=== PATIENT | male | born 1955 | race Caucasian/White ===

== ENCOUNTER 2019-05-29 10:51 | Observation (INO) ==
[2019-05-29] MEDS ORDERED: SODIUM CHLORIDE 0.9% 1000ML 2,000 ML IV SCH (11:30)
[2019-05-29 11:35] LABS: INR 1.2 (0.9-1.1); Prothrombin Time 12.3 Seconds (9.0-12.0)
--- NOTE | 2019-05-29 11:37 | XRay Report ---
XR chest 1V portable CLINICAL HISTORY: 63 years-old Male presenting with seizure. TECHNIQUE: Portable upright AP view of the chest was obtained. COMPARISON: None. FINDINGS: Cardiac silhouette top normal in size. No focal opacity. No large effusion or pneumothorax. Degenerat norma changes of the thoracic spine. Upper abdomen normal. IMPRESSION: 1. No acute cardiopulmonary disease. Electronically signed by: Mckinley Juarez M.D. 05/29/2019 11:36 AM
[2019-05-29 11:40] LABS: Alanine Aminotransferase 244 U/L (12-78); Albumin Level 3.5 gm/dl (3.4-5.0); Aspartate Aminotransferase 196 U/L (15-37); BUN Creatinine Ratio 15.4 (10-20); Blood Urea Nitrogen 16 mg/dl (7-18); Carbon Dioxide 23 mmol/L (21-32); Chloride 109 mmol/L (98-107); Creatinine Clr Calc Pharmacy 92.3 ml/min; Est GFR (African American) 88.4; Est GFR (Non-African American) 76.2; Glucose 104 mg/dl (70-99); Sodium 139 mmol/L (136-145)
[2019-05-29 11:44] LABS: Albumin Globulin Ratio 0.7 (0.9-2); Alkaline Phosphatase 101 U/L (45-117); Bilirubin,Total 1.3 mg/dl (0.2-1); Globulin 4.7 gm/dl (2.5-4.0); Total Protein 8.2 gm/dl (6.4-8.2); Troponin I < 0.015 ng/ml (0-0.045)
--- NOTE | 2019-05-29 11:45 | CT Scan Report ---
CT OF THE HEAD WITHOUT CONTRAST CLINICAL HISTORY: Seizure. COMPARISON STUDY: No previous studies for comparison. CT DOSE: 614.27 mGy.cm TECHNIQUE: Helical axial images of the head were obtained without IV contrast. Automated exposure con trol was utilized for the study. A dose lowering technique was utilized adhering to the principles o f ALARA. FINDINGS: No acute intracranial hemorrhage, midline shift or mass effect is present. The ventricular system is unremarkable. The basilar cisterns are patent. No extra-axial collections are present. Ther e are no findings to suggest acute dural sinus thrombosis or acute territorial infarct. A 6 mm hypode nsity within left cerebellar hemisphere suggests an old lacunar infarct. No significant calvarial abn ormalities are present. Visualized portions of the sinuses and mastoid air cells are clear. IMPRESSION: 1. No acute intracranial findings. 2. Suspected old lacunar infarct within the left cerebellar hemisphere. Electronically signed by: Joshua Haider M.D. 05/29/2019 11:44 AM
[2019-05-29 11:56] LABS: Basophils # (auto) 0.02 K/uL (0-0.2); Basophils % (auto) 0.5 %; Eosinophils # (auto) 0.07 K/uL (0-0.5); Eosinophils % (auto) 1.6 %; Hematocrit (blood only) 42.8 % (42-52); Hemoglobin 15.3 g/dL (14.0-18.0); Immature Granulocytes # (auto) 0.01 K/uL (0.00-0.02); Immature Granulocytes % (auto) 0.2 %; Lymphocytes # (auto) 0.58 K/uL (1.2-3.4); Lymphocytes % (auto) 13.1 %; Mean Corpuscular Hgb Conc 35.7 g/dL (32-36); Mean Corpuscular Volume 98.8 fL (80-100); Monocytes # (auto) 0.54 K/uL (0.11-0.59); Monocytes % (auto) 12.2 %; Neutrophils % (auto) 72.4 %; Platelet Count 87 K/uL (130-400); RDW Coefficient of Variation 14.7 % (11.5-14.5); RDW Standard Deviation 53.2 fL (36.4-46.3); Red Blood Count 4.33 M/uL (4.7-6.1); White Blood Count 4.42 K/uL (4.8-10.8)
[2019-05-29] MEDS ORDERED: FOLIC ACID 1 MG in SYRINGE 9.8 ML IV STA (14:03)
[2019-05-29] MEDS ORDERED: THIAMINE HCL 100 MG in SYRINGE 9 ML IV STA (14:03)
--- NOTE | 2019-05-29 14:03 | Ultrasound Report ---
ULTRASOUND RIGHT UPPER QUADRANT ABDOMEN CLINICAL HISTORY: Elevated hepatic transaminases and bilirubin. COMPARISON STUDY: No priors. TECHNIQUE: Real-time, grayscale, and color flow sonography of the right upper quadrant of the abdomen was performed. Images are reviewed in the transverse and longitudinal planes. FINDINGS: Liver: The liver is normal in size and echotexture. There is no intrahepatic biliary ductal dilatatio n. The main portal vein is patent. Gallbladder: There are numerous shadowing calcified gallstones which measure up to 1.7 cm. There is n o significant gallbladder wall thickening or pericholecystic fluid. A sonographic Molina's sign is re portedly absent. The common bile duct measures up to 0.5 cm in diameter. Pancreas: Not well visualized due to overlying bowel gas. Right kidney: Survey images of the right kidney demonstrate normal size and echotexture. There is no hydronephrosis. Ascites: None. IMPRESSION: Cholelithiasis without definitive sonographic evidence of acute cholecystitis. If there i s strong clinical concern for acute cholecystitis a nuclear hepatobiliary scan could be considered. Electronically signed by: Joselito Mayfield M.D. 05/29/2019 2:01 PM
[2019-05-29] MEDS: MULTIVITAMIN TAB PO SCH (14:30)
--- NOTE | 2019-05-29 16:06 | History & Physical Report ---
Date of Service May 29, 2019 Assessment & Plan (1) Syncopal seizure: Patient is a 63-year-old male with a past medical history of jaundice, cholelithiasis, and intermittent gallbladder related abdominal pain. Patient is presenting for evaluation of syncopal episode with questionable seizure. #Syncopal seizure Patient reports he has no seizure history, no family history of seizures, strokes and no other concerning risk factors for seizure. Patient attributes his current symptoms and presentation to lack of proper nutrition and dehydration. Patient CT scan did show a prior small lacunar cerebellar infarct, the patient was not previously aware of this, and has no residual symptoms. Patient does not follow regularly with PCP, and his medical history is largely unknown. We will proceed with seizure work-up. -admitted to tele, seizure precautions -eeg -hba1c -bsg achs -f/u ck -f/u lactate #Abnormal EKG Patient reports having no significant cardiac history, denies any chest pain, chest pressure, funny heartbeats, fast heartbeats, slow heartbeat or anything else out of the normal. On admission patient's EKG demonstrated ventricular rate of 88 bpm, QTC of 481, some axis deviation. There was a P wave before every QRS, the QRS complex is a bit widened no T wave inversions. Computer is is is age undetermined septal infarct otherwise normal sinus rhythm. Given the patient's presentation, and cyanosis during the syncopal events there was concern for potential intermittent arrhythmia. Findings on CT scan of previous cerebellar infarct there is a concern for intermittent atrial fibrillation with associated clot shedding -Consult cardiology appreciate recs -F/U Serial trops -Started on baby aspirin daily -f/u Echo -Daily twelve-lead EKG -F/U EEG -F/u Lipid Profile #Hx stroke CT findings of brain demonstrate history of cerebellar lacunar stroke. Patient has no symptoms of this, was not aware that he previously had a stroke. Concerning for potential intermittent paroxysmal A. fib with associated clot shedding -Carotid Dopplers -f/u echo #Dehydration Patient certainly does have a number of reasons to be dehydrated. The most likely cause of this would be alcohol intoxication without adequate fluid rehydration and poor nutrition. However it is possible given his lack of adequate medical follow-up that this could be related to an underlying metabolic condition. -trend daily cmp, mag, phos -trend daily cbc -f/u a1c #Transaminitis Per the patient this is chronic in nature. He was evaluated approximately 1.5 years ago by Melanie in [facility]. I spoke with her office on the phone, confirming these findings. Patient presented to them with jaundice, CMP demonstrated elevated LFTs, and she referred him to GI. Admission gallbladder ultrasound demonstrated cholelithiasis without acute cholecystitis. Likely secondary to recent alcohol use -Per ultrasound and physical exam, no concern for acute cholecystitis, cholelithiasis evident on ultrasound -Monitor for signs and symptoms of development of cholecystitis #Hypertension Patient has been hypertensive 170s over 90s since admission with a corresponding bradycardia of 56 bpm. We will hold off on antihypertensives pending cardiology consultation. -Unclear etiology, will hold off on therapy until cardiology consultation -Patient will likely need some form of chronic therapy. History of Present Illness Primary Care Provider: NO PCP Patient is a 63-year-old male with a past medical history of jaundice, cholelithiasis, and intermittent gallbladder related abdominal pain. Patient is presenting for evaluation of syncopal episode with questionable seizure. Patient was in his normal state of health this morning prior to the syncopal episode. Patient reports of the last time he ate a meal was yesterday during lunch. He is but drove up to Yesterday evening, on the way up to camp he stopped for a Coca-Cola. Upon arrival to The patient decided he wanted a night and made for "strong" rum and Cokes and went to sleep. He woke up this morning feeling slightly hung over but otherwise had no symptoms or complaints. He reports that he did not drink any significant water yesterday evening or this morning. Today they were walking around the [place] sale near [facility] when the patient began feeling dizzy and like he was going to pass out. Subsequently the patient had a syncopal episode, with associated full body tremors, tongue biting, he turned slightly blue, this lasted for approximately 2 minutes. Fortunately for the patient at this time there was a hospice nurse in a couple of marketing professor present. They took charge of the situation provided the patient with cool water, and ice packs. The patient recovered from a couple episode and was postictal, confused, unable to answer questions. He did have another questionable syncopal episode subsequently, this 1 was much shorter, and did not have significant shaking associated with it. EMS was called, per the patient's views for approximately 30 minutes until EMS arrived. The patient states he does not remember anything from the time of the fall until waking up in the ambulance. Upon waking up in the ambulance he reports being able to respond to questions and feeling significantly better. The patient was transferred to [facility] and evaluated department. The patient's lab findings were largely unremarkable with the exception of elevated liver function tests which per the patient was secondary to a history of cholelithiasis and need for elective cholecystectomy. Patient had a CT demonstrating an old cerebellar infarct. Patient is also slightly abnormal and concerning for possible previous infarct. Patient had a gallbladder ultrasound cholelithiasis without acute cholecystitis no current need for surgical intervention, chest x-ray was negative for any significant pathology. In the emergency department the patient was given 1 multivitamin, 1 folic, 1 dose of Keppra, a liter of saline, and thiamine. Patient denies any family history of seizures, history of cardiac disease. patient denies chest pain, chest pressure, shortness of breath, or other signs concerning for acute coronary, abdominal pain, change in vision, change in hearing, motor function, other concerning neurological signs or symptoms. Patient does drink heavily approximately 4 days/week, denies any recent changes in his alcohol consumption, this is most likely not related to alcohol withdrawal. Patient does not follow with her primary care provider regularly, approximately 1 & 1/2 years ago he saw Carmen Martin in [facility] for evaluation of jaundice, abdominal pain, he received ultrasound and was subsequently diagnosed with cholelithiasis and referred to gastroenterology for further evaluation. Patient is being admitted for observation to [facility] out of concern that this patient syncope was related to a cardiac event such as an arrhythmia. Allergies Allergy/AdvReac Type Severity Reaction Status Date / Time No Known Allergies Allergy Unverified 05/29/19 11:20 Home Medications Home Medications Medication Instructions Recorded Confirmed Type aspirin [Ecotrin Low Strength] 81 mg PO QAM #30 tab 05/30/19 Rx atorvastatin 80 mg PO DAILY #30 tab 05/30/19 Rx folic acid 1 mg PO QAM #30 tab 05/30/19 Rx lisinopril 10 mg PO QAM #30 tab 05/30/19 Rx thiamine HCl (vitamin B1) [Vitamin 100 mg PO QAM #30 tab 07/20/19 Rx B-1] Past Med/Surg History Medical History Seizure History of gallbladder disease No pertinent family history Surgical History No pertinent past surgical history Family History Other No pertinent family history Social History Preferred Language: Niuean Communication Ability: Effective Visual Impairment: No Limitations Hearing Ability: Normal Status Controller Required: No Beliefs That Will Affect Care: None Current Living Situation: Spouse Feels Safe at Home: No Is there a partner from a previous relationship who is making you feel unsafe now?: No Any Concerns about Your Family Situation: No Would You Like to Speak to Someone About Your Situation: No Safety Concerns: Feels Safe At This Time Smoking Status: Never smoker Do You Dip or Chew Tobacco: No Second Hand Exposure: No Tobacco Cessation Education Requested by Patient: No Hx Alcohol Use: Yes Alcohol type: beer Hx Substance Use: No Review of Systems Review of Systems: All systems reviewed & are unremarkable except as noted in HPI & below Physical Exam Physical Exam: General: Middle-aged male in no acute distress HEENT: Normocephalic atraumatic, tongue has a laceration and bruised secondary to biting Neck: Normal to visual inspection, negative JVD Cardiac: Regular rate and rhythm, I did not appreciate any murmurs rubs or gallops, normal S1 normal S2, negative pedal edema, negative calf tenderness Respiratory: Clear to auscultation bilaterally GI: Soft nontender nondistended normal bowel sounds MSK: Moves all extremities Skin: No new rashes Neuro: CN II through XII intact, no focal findings, sensory intact, motor intact, PERRLA, EOMI Psych: Calm, cooperative, not particularly interested in his health status, Results & Data Vital Signs (Past 12 Hours) Vital Signs Temp Pulse Resp BP Pulse Ox 05/29/19 14:30 66 20 161/88 H 97 05/29/19 14:18 59 L 17 160/87 H 98 05/29/19 14:00 73 22 194/104 H 97 05/29/19 13:57 63 22 174/100 H 98 05/29/19 12:30 70 23 171/102 H 97 05/29/19 12:00 77 22 171/94 H 94 05/29/19 11:42 81 18 160/82 H 95 05/29/19 11:04 37.2 C 94 H 18 173/90 H 96 Laboratory Results 05/29/19 05/29/19 05/29/19 Range/Units 11:00 11:00 11:00 WBC (4.8-10.8) K/uL RBC (4.7-6.1) M/uL Hgb (14.0-18.0) g/dL Hct (42-52) % MCV (80-100) fL MCH (25-34) pg MCHC (32-36) g/dL RDW Std Deviation (36.4-46.3) fL RDW Coeff of Yani (11.5-14.5) % Plt Count (130-400) K/uL MPV (7.4-10.4) fL Immature Gran % (Auto) % Neut % (Auto) % Lymph % (Auto) % Harrison % (Auto) % Eos % (Auto) % Baso % (Auto) % Immature Gran # (Auto) (0.00-0.02) K/uL Neut # (Auto) (1.4-6.5) K/uL Lymph # (Auto) (1.2-3.4) K/uL Harrison # (Auto) (0.11-0.59) K/uL Eos # (Auto) (0-0.5) K/uL Baso # (Auto) (0-0.2) K/uL PT (9.0-12.0) Seconds INR (0.9-1.1) Sodium 139 (136-145) mmol/L Potassium 4.0 (3.5-5.1) mmol/L Chloride 109 H (98-107) mmol/L Carbon Dioxide 23 (21-32) mmol/L Anion Gap 8.0 (3-11) BUN 16 (7-18) mg/dl Creatinine 1.05 (0.6-1.4) mg/dl Est Cr Clr Drug Dosing 92.3 ml/min Est GFR ( Amer) 88.4 Est GFR (Non-Af Amer) 76.2 BUN/Creatinine Ratio 15.4 (10-20) Glucose 104 H (70-99) mg/dl Calcium 9.0 (8.5-10.1) mg/dl Total Bilirubin 1.3 H (0.2-1) mg/dl AST 196 H (15-37) U/L ALT 244 H (12-78) U/L Alkaline Phosphatase 101 (45-117) U/L Total Creatine Kinase Pending Troponin I < 0.015 (0-0.045) ng/ml Total Protein 8.2 (6.4-8.2) gm/dl Albumin 3.5 (3.4-5.0) gm/dl Globulin 4.7 H (2.5-4.0) gm/dl Albumin/Globulin Ratio 0.7 L (0.9-2) Lipase 151 (73-393) U/L 05/29/19 05/29/19 Range/Units 11:00 11:00 WBC 4.42 L (4.8-10.8) K/uL RBC 4.33 L (4.7-6.1) M/uL Hgb 15.3 (14.0-18.0) g/dL Hct 42.8 (42-52) % MCV 98.8 (80-100) fL MCH 35.3 H (25-34) pg MCHC 35.7 (32-36) g/dL RDW Std Deviation 53.2 H (36.4-46.3) fL RDW Coeff of Yani 14.7 H (11.5-14.5) % Plt Count 87 L (130-400) K/uL MPV 11.0 H (7.4-10.4) fL Immature Gran % (Auto) 0.2 % Neut % (Auto) 72.4 % Lymph % (Auto) 13.1 % Harrison % (Auto) 12.2 % Eos % (Auto) 1.6 % Baso % (Auto) 0.5 % Immature Gran # (Auto) 0.01 (0.00-0.02) K/uL Neut # (Auto) 3.20 (1.4-6.5) K/uL Lymph # (Auto) 0.58 L (1.2-3.4) K/uL Harrison # (Auto) 0.54 (0.11-0.59) K/uL Eos # (Auto) 0.07 (0-0.5) K/uL Baso # (Auto) 0.02 (0-0.2) K/uL PT 12.3 H (9.0-12.0) Seconds INR 1.2 H (0.9-1.1) Sodium (136-145) mmol/L Potassium (3.5-5.1) mmol/L Chloride (98-107) mmol/L Carbon Dioxide (21-32) mmol/L Anion Gap (3-11) BUN (7-18) mg/dl Creatinine (0.6-1.4) mg/dl Est Cr Clr Drug Dosing ml/min Est GFR ( Amer) Est GFR (Non-Af Amer) BUN/Creatinine Ratio (10-20) Glucose (70-99) mg/dl Calcium (8.5-10.1) mg/dl Total Bilirubin (0.2-1) mg/dl AST (15-37) U/L ALT (12-78) U/L Alkaline Phosphatase (45-117) U/L Total Creatine Kinase Troponin I (0-0.045) ng/ml Total Protein (6.4-8.2) gm/dl Albumin (3.4-5.0) gm/dl Globulin (2.5-4.0) gm/dl Albumin/Globulin Ratio (0.9-2) Lipase (73-393) U/L Medications Administered Current Inpatient Medications Multivitamins (Multivitamin Tab) 1 tab PO QAM KAREEM Stop: 06/28/19 14:14 Last Admin: 05/29/19 14:30 Dose: 1 tab Documented by: Code Status & VTE Plan Code Status Full Code VTE Prophylaxis Plan VTE Prophylaxis will be ordered: Yes Supervising Physician Co-Signing Physician Notes Attending attestation Pt seen and examined in concert with Dr. Nguyen. In agreement with the documented findings as noted in the resident documentation with any exceptions or additions as noted here. Sudden onset LOC while walking outside in the heat - reports no POI aside from rum&coke x 4 in the last ~18 hours. Episode was rapid onset of lightheadedness, vision tunneling and LOC. Was out briefly with some post awakening confusion per spouse who was at incident. Heavy alcohol use 4 nights per week (4-6 drinks). h/o cholelithiasis w/o cholecystitis. No FHx reported by patient. No surgical history reported. On examination, S1/S2 nl RRR no MCG. CTAB. Abd NT/ND BS+ve. CNII-XII grossly intact as tested. Reflexes 2+ patellar B/L. Str 5/5 bilateral upper and lower. Brusing of tongue apparent with minimal pain/bleeding Sudden LOC - concerning for seizure in light of onset and post-ictal type sx, but also setup for syncope 2/2 dehydration - admit to obs with plan as noted for evaluation, cardiology consultation and trend troponins. Else see resident documentation as noted. PG Care Time/CCT Total # of Minutes Spent Total Time Spent with Patient: Total time spent is greater than 50% in coordination of care (as documented) at patient's floor/unit and/or counseling patient: Resident Activity Tracking Resident Involvement: Resident Care Provided Care Provided: Adult Hospital Medicine
--- NOTE | 2019-05-29 16:43 | Emergency Department Note ---
Entered by Frida Price acting as a scribe for History of Present Illness General Chief complaint: Seizure Source: patient and family Mode of arrival: ambulatory Limitations: no limitations History of Present Illness Onset (ago): day(s) (today) Location: head (seizure) Pain Consistency: + other (episode) Quality: + other (seizure) Relieved By: + other (ice) Associated symptoms: + seizure and + other (The patient complains of lightheadedness. The patient denies urinary continence and biting his tongue. ) Treatments prior to arrival: cold therapy The patient is a 63 year old male with a history of gallbladder problems who pre sents to the ED via EMS with complaints of an episode of a seizure that onset today. The patient presents with his . He states that he was at the [employer] [address] [employer] when he started feeling lightheaded. He denies feeling his heart racing at this time. The patient states that he then lost consciousness. Per , she called for help and lowered him to the ground. She states that he then experienced full body shaking, blue lips, red face, and difficulty breathing for about 1 minute. Per , bystanders applied cold packs to the patients arms. She states that the patient was out of it after the shaking episode for about 15 minutes but regained his color. She states that the nurse on site said that he went back into it again and the patients lips turned blue, his face red, and had difficulty breathing. The patients states that it happened too fast and is confused about what happened. Per EMS, the patient was alert, oriented, and had no complaints upon their arrival. The patient denies urinary continence and biting his tongue. Home Medications Home Medications Medication Instructions Recorded Confirmed Type No Known Home Medications 05/29/19 05/29/19 History Allergies Allergy/AdvReac Type Severity Reaction Status Date / Time No Known Allergies Allergy Unverified 05/29/19 11:20 Past Med/Surg History Medical History Seizure History of gallbladder disease No pertinent family history Surgical History No pertinent past surgical history Family History Other No pertinent family history Social History Preferred Language: Lithuanian Communication Ability: Effective Visual Impairment: No Limitations Hearing Ability: Normal Feels Safe at Home: Yes Smoking Status: Never smoker Review of Systems See HPI for pertinent positives & negatives. and A total of 10 systems reviewed and were otherwise negative Physical Exam Vital Signs Vital Signs - 24 hr 05/29/19 11:04 05/29/19 11:21 05/29/19 11:25 Temperature 37.2 C Temperature Source Oral Sepsis Recent Fever Within 48 Hours No Sepsis New/Unexplained Change in Mental Status No Sepsis Action Taken by Nursing No Action Required Pulse Rate - Lying 89 Pulse Rate - Sitting 76 Pulse Rate - Standing 89 Pulse Rate 94 H Respiratory Rate 18 Blood Pressure - Lying 174/91 H Blood Pressure - Sitting 161/91 H Blood Pressure- Standing 182/93 H Blood Pressure 173/90 H Blood Pressure Mean 117 Pulse Oximetry 96 Oxygen Delivery Method Room Air Room Air 05/29/19 11:42 05/29/19 12:00 05/29/19 12:30 Temperature Temperature Source Sepsis Recent Fever Within 48 Hours Sepsis New/Unexplained Change in Mental Status Sepsis Action Taken by Nursing Pulse Rate - Lying Pulse Rate - Sitting Pulse Rate - Standing Pulse Rate 81 77 70 Respiratory Rate 18 22 23 Blood Pressure - Lying Blood Pressure - Sitting Blood Pressure- Standing Blood Pressure 160/82 H 171/94 H 171/102 H Blood Pressure Mean 108 119 125 Pulse Oximetry 95 94 97 Oxygen Delivery Method Room Air Room Air Room Air 05/29/19 13:57 05/29/19 14:00 05/29/19 14:18 Temperature Temperature Source Sepsis Recent Fever Within 48 Hours Sepsis New/Unexplained Change in Mental Status Sepsis Action Taken by Nursing Pulse Rate - Lying Pulse Rate - Sitting Pulse Rate - Standing Pulse Rate 63 73 59 L Respiratory Rate 22 22 17 Blood Pressure - Lying Blood Pressure - Sitting Blood Pressure- Standing Blood Pressure 174/100 H 194/104 H 160/87 H Blood Pressure Mean 124 134 111 Pulse Oximetry 98 97 98 Oxygen Delivery Method Room Air Room Air Room Air 05/29/19 14:30 05/29/19 15:00 05/29/19 15:30 Temperature Temperature Source Sepsis Recent Fever Within 48 Hours Sepsis New/Unexplained Change in Mental Status Sepsis Action Taken by Nursing Pulse Rate - Lying Pulse Rate - Sitting Pulse Rate - Standing Pulse Rate 66 69 59 L Respiratory Rate 20 20 17 Blood Pressure - Lying Blood Pressure - Sitting Blood Pressure- Standing Blood Pressure 161/88 H 178/101 H 178/98 H Blood Pressure Mean 112 126 124 Pulse Oximetry 97 97 98 Oxygen Delivery Method Room Air Room Air Room Air 05/29/19 16:00 Temperature Temperature Source Sepsis Recent Fever Within 48 Hours Sepsis New/Unexplained Change in Mental Status Sepsis Action Taken by Nursing Pulse Rate - Lying Pulse Rate - Sitting Pulse Rate - Standing Pulse Rate 56 L Respiratory Rate 20 Blood Pressure - Lying Blood Pressure - Sitting Blood Pressure- Standing Blood Pressure 171/94 H Blood Pressure Mean 119 Pulse Oximetry 97 Oxygen Delivery Method Room Air GENERAL: Sitting up in bed, stanley, talking in full sentences, slightly disheveled. EYE EXAM: Normal conjunctiva. OROPHARYNX: no exudate, no erythema, lips, buccal mucosa, and tongue normal and mucous membranes are moist, oropharynx bite dunham on bilateral tongue. NECK: supple, no nuchal rigidity, no adenopathy, non-tender LUNGS: Clear to auscultation. Normal chest wall mechanics HEART: no murmurs, S1 normal and S2 normal ABDOMEN: abdomen soft, non-tender, normo-active bowel sounds, no masses, no rebound or guarding. BACK: Back is symmetrical on inspection and there is no deformity, no midline tenderness, no CVA tenderness. SKIN: no rashes and no bruising UPPER EXTREMITIES: upper extremities are grossly normal. LOWER EXTREMITIES: No pitting edema. NEURO EXAM: Normal sensorium, cranial nerves II-XII intact, normal speech, no weakness of arms, no weakness of legs. No drift. Finger to nose intact. Gross sensation intact. Course 1108: Past medical records reviewed. The patient was evaluated in room C10. A complete history and physical examination was performed. 1410: I [facility] the patient[facility]. She will evaluate the patient for further management. Consultations Consultation #1: [id number]: I reviewed the patient's [facility]. She will evaluate the patient for further management. Time: 14:10 Administered Medications Multivitamins (Multivitamin Tab) 1 tab PO QAM KAREEM Stop: 06/28/19 14:14 Last Admin: 05/29/19 14:30 Dose: 1 tab Documented by: [id number] Discontinued Medications Sodium Chloride (Nss 1000ml) 2,000 mls @ 999 mls/hr IV .Q2H1M KAREEM Stop: 05/29/19 13:30 Last Infusion: 05/29/19 14:06 Dose: 0 mls/hr Documented by: [id number] Admin: 05/29/19 11:32 Dose: 999 mls/hr Documented by: [id number] Folic Acid 1 mg/ Syringe 10 mls @ 5 mls/min IV NOW STA Stop: 05/29/19 14:04 Last Admin: 05/29/19 14:21 Dose: 5 mls/min Documented by: [id number] Levetiracetam 1,000 mg/ (Dextrose) 110 mls @ 440 mls/hr IV NOW STA Stop: 05/29/19 14:17 Last Admin: 05/29/19 14:20 Dose: Not Given Documented by: [id number] Thiamine HCl 100 mg/ Syringe 10 mls @ 2 mls/min IV NOW STA Stop: 05/29/19 14:07 Last Admin: 05/29/19 14:21 Dose: 2 mls/min Documented by: [id number] Medical Decision Making Differential Diagnosis Differential diagnosis Infection, hypoglycemia, electrolyte abnormalities, cardiac sources, intracerebral event, trauma, toxicologic, neurologic, as well as other e tiologies were entertained. Medical Records Attestation: I reviewed the patient's medical records. Home Medications Current Medication List: was personally reviewed by me Laboratory Data Attestation: I reviewed the patient's lab results. Result diagrams: 05/29/19 11:00 05/29/19 11:00 Lab Results 05/29/19 05/29/19 05/29/19 Range/Units 11:00 11:00 11:00 WBC 4.42 L (4.8-10.8) K/uL RBC 4.33 L (4.7-6.1) M/uL Hgb 15.3 (14.0-18.0) g/dL Hct 42.8 (42-52) % MCV 98.8 (80-100) fL MCH 35.3 H (25-34) pg MCHC 35.7 (32-36) g/dL RDW Std Deviation 53.2 H (36.4-46.3) fL RDW Coeff of Yani 14.7 H (11.5-14.5) % Plt Count 87 L (130-400) K/uL MPV 11.0 H (7.4-10.4) fL Immature Gran % (Auto) 0.2 % Neut % (Auto) 72.4 % Lymph % (Auto) 13.1 % [place] % (Auto) 12.2 % Eos % (Auto) 1.6 % Baso % (Auto) 0.5 % Immature Gran # (Auto) 0.01 (0.00-0.02) K/uL Neut # (Auto) 3.20 (1.4-6.5) K/uL Lymph # (Auto) 0.58 L (1.2-3.4) K/uL [place] # (Auto) 0.54 (0.11-0.59) K/uL Eos # (Auto) 0.07 (0-0.5) K/uL Baso # (Auto) 0.02 (0-0.2) K/uL PT 12.3 H (9.0-12.0) Seconds INR 1.2 H (0.9-1.1) Sodium 139 (136-145) mmol/L Potassium 4.0 (3.5-5.1) mmol/L Chloride 109 H (98-107) mmol/L Carbon Dioxide 23 (21-32) mmol/L Anion Gap 8.0 (3-11) BUN 16 (7-18) mg/dl Creatinine 1.05 (0.6-1.4) mg/dl Est Cr Clr Drug Dosing 92.3 ml/min Est GFR ( Amer) 88.4 Est GFR (Non-Af Amer) 76.2 BUN/Creatinine Ratio 15.4 (10-20) Glucose 104 H (70-99) mg/dl Calcium 9.0 (8.5-10.1) mg/dl Total Bilirubin 1.3 H (0.2-1) mg/dl AST 196 H (15-37) U/L ALT 244 H (12-78) U/L Alkaline Phosphatase 101 (45-117) U/L Total Creatine Kinase (39-308) U/L Troponin I < 0.015 (0-0.045) ng/ml Total Protein 8.2 (6.4-8.2) gm/dl Albumin 3.5 (3.4-5.0) gm/dl Globulin 4.7 H (2.5-4.0) gm/dl Albumin/Globulin Ratio 0.7 L (0.9-2) Lipase (73-393) U/L 05/29/19 05/29/19 Range/Units 11:00 11:00 WBC (4.8-10.8) K/uL RBC (4.7-6.1) M/uL Hgb (14.0-18.0) g/dL Hct (42-52) % MCV (80-100) fL MCH (25-34) pg MCHC (32-36) g/dL RDW Std Deviation (36.4-46.3) fL RDW Coeff of Yani (11.5-14.5) % Plt Count (130-400) K/uL MPV (7.4-10.4) fL Immature Gran % (Auto) % Neut % (Auto) % Lymph % (Auto) % [place] % (Auto) % Eos % (Auto) % Baso % (Auto) % Immature Gran # (Auto) (0.00-0.02) K/uL Neut # (Auto) (1.4-6.5) K/uL Lymph # (Auto) (1.2-3.4) K/uL [place] # (Auto) (0.11-0.59) K/uL Eos # (Auto) (0-0.5) K/uL Baso # (Auto) (0-0.2) K/uL PT (9.0-12.0) Seconds INR (0.9-1.1) Sodium (136-145) mmol/L Potassium (3.5-5.1) mmol/L Chloride (98-107) mmol/L Carbon Dioxide (21-32) mmol/L Anion Gap (3-11) BUN (7-18) mg/dl Creatinine (0.6-1.4) mg/dl Est Cr Clr Drug Dosing ml/min Est GFR ( Amer) Est GFR (Non-Af Amer) BUN/Creatinine Ratio (10-20) Glucose (70-99) mg/dl Calcium (8.5-10.1) mg/dl Total Bilirubin (0.2-1) mg/dl AST (15-37) U/L ALT (12-78) U/L Alkaline Phosphatase (45-117) U/L Total Creatine Kinase 104 (39-308) U/L Troponin I (0-0.045) ng/ml Total Protein (6.4-8.2) gm/dl Albumin (3.4-5.0) gm/dl Globulin (2.5-4.0) gm/dl Albumin/Globulin Ratio (0.9-2) Lipase 151 (73-393) U/L Imaging Data Radiologist's Impression: Radiology results as stated below per my review and the radiologist's interpretation: ULTRASOUND RIGHT UPPER QUADRANT ABDOMEN CLINICAL HISTORY: Elevated hepatic transaminases and bilirubin. COMPARISON STUDY: No priors. TECHNIQUE: Real-time, grayscale, and color flow sonography of the right upper quadrant of the abdomen was performed. Images are reviewed in the transverse and longitudinal planes. FINDINGS: Liver: The liver is normal in size and echotexture. There is no intrahepatic biliary ductal dilatation. The main portal vein is patent. Gallbladder: There are numerous shadowing calcified gallstones which measure up to 1.7 cm. There is no significant gallbladder wall thickening or pericholecystic fluid. A sonographic Molina's sign is reportedly absent. The common bile duct measures up to 0.5 cm in diameter. Pancreas: Not well visualized due to overlying bowel gas. Right kidney: Survey images of the right kidney demonstrate normal size and echotexture. There is no hydronephrosis. Ascites: None. IMPRESSION: Cholelithiasis without definitive sonographic evidence of acute cholecystitis. If there is strong clinical concern for acute cholecystitis a nuclear hepatobiliary scan could be considered. Electronically signed by: Joselito Mayfield M.D. 05/29/2019 2:01 PM Dictated: 05/29/19 1353 Transcribed: 05/29/[address] OF THE HEAD WITHOUT CONTRAST CLINICAL HISTORY: Seizure. COMPARISON STUDY: No previous studies for comparison. CT DOSE: 614.27 mGy.cm TECHNIQUE: Helical axial images of the head were obtained without IV contrast. Automated exposure control was utilized for the study. A dose lowering technique was utilized adhering to the principles of ALARA. FINDINGS: No acute intracranial hemorrhage, midline shift or mass effect is present. The ventricular system is unremarkable. The basilar cisterns are patent. No extra-axial collections are present. There are no findings to suggest acute dural sinus thrombosis or acute territorial infarct. A 6 mm hypodensity within left cerebellar hemisphere suggests an old lacunar infarct. No significant calvarial abnormalities are present. Visualized portions of the sinuses and mastoid air cells are clear. IMPRESSION: 1. No acute intracranial findings. 2. Suspected old lacunar infarct within the left cerebellar hemisphere. Electronically signed by: Joshua Haider M.D. 05/29/2019 11:44 AM Dictated: 05/29/19 1141 Transcribed: 05/29/19 1141 XR chest 1V portable CLINICAL HISTORY: 63 years-old Male presenting with seizure. TECHNIQUE: Portable upright AP view of the chest was obtained. COMPARISON: None. FINDINGS: Cardiac silhouette top normal in size. No focal opacity. No large effusion or pneumothorax. Degenerative changes of the thoracic spine. Upper abdomen normal. IMPRESSION: 1. No acute cardiopulmonary disease. Electronically signed by: Mckinley Juarez M.D. 05/29/2019 11:36 AM Dictated: 05/29/19 1135 Transcribed: 05/29/19 113 ECG Data Attestation: I personally reviewed and interpreted this ECG as follows: Indication: other (seizure) Rate (beats per minute): 88 Rhythm: sinus rhythm Findings: + other (poor baseline, slightly prolonged QTC. ) and + left axis deviation Blood Pressure Blood Pressure Findings: Elevated blood pressure Blood Pressure Disposition: elevated BP felt to be situational MDM Narrative Patient is a 63-year-old male who presents the ER with no significant past medical history he does not follow with PCP for an episode where he felt lightheaded and passed out. There is mild diffuse body shaking patient started turning blue. He eventually relax and started breathing and then had another ep isode when he tensed up and began to turn blue again. There is minimal to no shaking on the second episode. Patient eventually woke up and was confused. My exam is completely neurologically intact. He does have bite dunham to his tongue. Vitals show a mild leukopenia at 4.4 thousand. No significant anemia. INR was at 1.2. BMP was unremarkable. T bili was elevated at 1.3. LFTs were elevated in the 200s. CK was normal. Lipase was normal. Troponin was negative. EKG showed no acute ischemia. Chest x-ray per my view showed no focal infiltrate. Ultrasound the gallbladder showed cholelithiasis. CT of the head showed an old stroke. Patient was updated bedside. As he does not follow with a physician/PCP is transaminitis, old stroke on CT I am concerned of cardiac versus neuroma neurologic versus dehydration. Patient was discussed with the hospitalist and will be observed overnight. Impression & Plan Seizure, Transaminitis, CVA (cerebral vascular accident) Discharge Plan Visit Data Chief Complaint: Seizure Other Complaint: Dizziness ED Provider: Jorden Montes Discharge Problem: Seizure, Transaminitis, CVA (cerebral vascular accident) Patient Disposition: Being Evaluated by Hospitalist Forms Stand Alone Forms: My [facility] Formative Labs Prescriptions Prescriptions: No Action No Known Home Medications RF: 0 Referrals Referrals: PCP,NO [Primary Care Provider] - The scribe's documentation has been prepared under my direction and personally reviewed by me in its entirety. I confirm that the note above accurately reflects all work, treatment, procedures, and medical decision making performed by me.
[2019-05-29] MEDS ORDERED: ACETAMINOPHEN 325 MG TAB PO PRN (19:56)
[2019-05-29] MEDS ORDERED: POLYETHYLENE (MIRALAX) 17 GM PACK PO PRN (19:56)
[2019-05-29] MEDS ORDERED: NITROGLYCERIN SL 0.4 MG/TAB TAB SL PRN (19:56)
[2019-05-29] MEDS ORDERED: ONDANSETRON INJ 2 MG/ML 2 ML VIAL IV PRN (19:56)
[2019-05-29 20:53] LABS: Chol HDL Ratio 6; Cholesterol 242 mg/dl (0-200); HDL Cholesterol 39 mg/dl; LDL Cholesterol Calculated 161 mg/dl; Triglycerides 212 mg/dl (0-150); VLDL Cholesterol 42 mg/dl
[2019-05-29] MEDS ORDERED: ENOXAPARIN INJ 40 MG/0.4 ML SYR SQ SCH (21:00)
[2019-05-29] MEDS: ASPIRIN 81 MG ECTAB PO SCH (21:23)
[2019-05-30 02:01] LABS: Hematocrit (blood only) 38.5 % (42-52); Hemoglobin 13.5 g/dL (14.0-18.0); Mean Corpuscular Hgb Conc 35.1 g/dL (32-36); RDW Coefficient of Variation 14.7 % (11.5-14.5); RDW Standard Deviation 52.8 fL (36.4-46.3); Red Blood Count 3.89 M/uL (4.7-6.1); White Blood Count 3.64 K/uL (4.8-10.8)
[2019-05-30 02:17] LABS: Albumin Level 2.7 gm/dl (3.4-5.0); BUN Creatinine Ratio 16.8 (10-20); Creatinine Clr Calc Pharmacy 117.7 ml/min; Est GFR (African American) 110.6; Est GFR (Non-African American) 95.4; Magnesium 2.3 mg/dl (1.8-2.4); Mean Platelet Volume 10.1 fL (7.4-10.4); Platelet Count 77 K/uL (130-400); Potassium 3.8 mmol/L (3.5-5.1)
[2019-05-30 02:24] LABS: Basophils # (auto) 0.02 K/uL (0-0.2); Basophils % (auto) 0.5 %; Eosinophils # (auto) 0.15 K/uL (0-0.5); Eosinophils % (auto) 4.1 %; Immature Granulocytes # (auto) 0.01 K/uL (0.00-0.02); Immature Granulocytes % (auto) 0.3 %; Lymphocytes # (auto) 0.86 K/uL (1.2-3.4); Lymphocytes % (auto) 23.6 %; Monocytes # (auto) 0.55 K/uL (0.11-0.59); Monocytes % (auto) 15.1 %; Neutrophils # (auto) 2.05 K/uL (1.4-6.5); Neutrophils % (auto) 56.4 %
[2019-05-30 02:25] LABS: Albumin Globulin Ratio 0.7 (0.9-2); Bilirubin,Total 0.9 mg/dl (0.2-1); Phosphorus 2.9 mg/dl (2.5-4.9); Total Protein 6.7 gm/dl (6.4-8.2); Troponin I 0.044 ng/ml (0-0.045)
--- NOTE | 2019-05-30 06:37 | Ultrasound Report ---
ULTRASOUND OF THE CAROTID ARTERIES CLINICAL HISTORY: Stroke COMPARISON STUDY: None. TECHNIQUE: Real-time, grayscale, and color Doppler sonography of the carotid arteries was performed. Imaging reviewed in the transverse and longitudinal planes. NASCET criteria was utilized for stenosis calcification. FINDINGS: There is minimal atherosclerotic plaque present . The peak systolic velocity within the right internal carotid artery is 72 cm/sec. The systolic velocity ratio of right internal to common carotid artery is 0.8. The peak systolic velocity within the left internal carotid artery is 72 cm/sec. The systolic velocity ratio left internal to common carotid artery is 0.8. Antegrade flow is seen in the vertebral arteries. The external carotid arteries are patent. Blood pressure in the right arm measured 166 mm/Hg. Blood pressure in the left arm measured 164 mm/H g. IMPRESSION: No evidence of hemodynamically significant carotid stenosis. Electronically signed by: Jefe Marshall M.D. 05/30/2019 6:35 AM
[2019-05-30 07:30] LABS: Estimated Average Glucose 94 mg/dl; Hemoglobin A1C 4.9 % (4.5-5.6)
[2019-05-30] MEDS: ASPIRIN 81 MG ECTAB PO SCH (07:47)
[2019-05-30] MEDS ORDERED: THIAMINE HCL 100 MG TAB PO SCH (09:00)
[2019-05-30] MEDS ORDERED: FOLIC ACID 1 MG TAB PO SCH (09:00)
[2019-05-30] MEDS: MULTIVITAMIN TAB PO SCH (09:13)
--- NOTE | 2019-05-30 11:07 | Family Medicine Progress Note ---
Date of Service May 30, 2019 Assessment & Plan (1) Syncopal seizure: Patient is a 63-year-old male with a past medical history of jaundice, cholelithiasis, and intermittent gallbladder related abdominal pain. Patient is presenting for evaluation of syncopal episode with questionable seizure. #Syncopal seizure Patient reports he has no seizure history, no family history of seizures, strokes and no other concerning risk factors for seizure. Patient attributes his current symptoms and presentation to lack of proper nutrition and dehydration. Patient CT scan did show a prior small lacunar cerebellar infarct, the patient was not previously aware of this, and has no residual symptoms. Patient does not follow regularly with PCP, and his medical history is largely unknown. We will proceed with seizure work-up. -admitted to tele, seizure precautions -eeg -hba1c -bsg achs -f/u ck -f/u lactate #Abnormal EKG Patient reports having no significant cardiac history, denies any chest pain, chest pressure, funny heartbeats, fast heartbeats, slow heartbeat or anything else out of the normal. On admission patient's EKG demonstrated ventricular rate of 88 bpm, QTC of 481, some axis deviation. There was a P wave before every QRS, the QRS complex is a bit widened no T wave inversions. Computer is is is age undetermined septal infarct otherwise normal sinus rhythm. Given the patient's presentation, and cyanosis during the syncopal events there was concern for potential intermittent arrhythmia. Findings on CT scan of previous cerebellar infarct there is a concern for intermittent atrial fibrillation with associated clot shedding -Consult cardiology appreciate recs -F/U Serial trops -Started on baby aspirin daily -f/u Echo -Daily twelve-lead EKG -F/U EEG -F/u Lipid Profile #Hx stroke CT findings of brain demonstrate history of cerebellar lacunar stroke. Patient has no symptoms of this, was not aware that he previously had a stroke. Concerning for potential intermittent paroxysmal A. fib with associated clot shedding -Carotid Dopplers -f/u echo #Dehydration Patient certainly does have a number of reasons to be dehydrated. The most likely cause of this would be alcohol intoxication without adequate fluid rehydration and poor nutrition. However it is possible given his lack of adequate medical follow-up that this could be related to an underlying metabolic condition. -trend daily cmp, mag, phos -trend daily cbc -f/u a1c #Transaminitis Per the patient this is chronic in nature. He was evaluated approximately 1.5 years ago by Melanie in [facility]. I spoke with her office on the phone, confirming these findings. Patient presented to them with jaundice, CMP demonstrated elevated LFTs, and she referred him to GI. Admission gallbladder ultrasound demonstrated cholelithiasis without acute cholecystitis. Likely secondary to recent alcohol use -Per ultrasound and physical exam, no concern for acute cholecystitis, cholelithiasis evident on ultrasound -Monitor for signs and symptoms of development of cholecystitis #Hypertension Patient has been hypertensive 170s over 90s since admission with a corresponding bradycardia of 56 bpm. We will hold off on antihypertensives pending cardiology consultation. -Unclear etiology, will hold off on therapy until cardiology consultation -Patient will likely need some form of chronic therapy. Results & Data Vital Signs (Past 12 Hours) Vital Signs Temp Pulse Pulse Resp BP Pulse Ox 05/30/19 08:01 36.9 C 54 L 57 L 16 197/97 H 96 05/30/19 04:00 37.0 C 53 L 18 133/80 97 05/29/19 23:53 37.0 C 63 18 157/86 H 97 PG Care Time/CCT Total # of Minutes Spent Total Time Spent with Patient: Total time spent is greater than 50% in coordination of care (as documented) at patient's floor/unit and/or counseling patient:
--- NOTE | 2019-05-30 13:45 | Consultation Report ---
DATE OF CONSULTATION: 05/30/2019 REQUESTING PHYSICIAN: Karel Hebert MD COMPUTER TECHNOLOGY TEACHER: Mendez Lazaro DO, [facility]. REASON FOR CONSULTATION: Syncope. Dear Kit: Thank you for requesting a cardiology consultation on Jeffrey with regards to his syncopal episode. 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 He notes 3 days prior to this episode, he had been working outside on [employer] in the sun all day, although he tried to keep up with his fluid consumption. He does believe he was dehydrated. He and his then came to their cabin in [place]. He had 4 Hany Cokes and he notes that they were very heavy on the rum. The next morning, they went on a 100-mile yard sale expedition. He had not eaten breakfast, only had a cup of coffee and a small drink of fluid in the morning, he had not eaten dinner the night before. He woke up that morning feeling slightly hungover. While at the sale, he became lightheaded and dizzy and felt like he was going to pass out and subsequently had a syncopal episode with full body tremors and tongue biting. He turned slightly blue. This lasted about 2 minutes. He awoke, he remembers the entire episode. He denies any palpitations or fluttering or feeling his heart racing. He was brought to the hospital by EMS. With normal activity, he denies any chest pain, chest pressure, chest heaviness. He can climb 2 flights of stairs. He can climb on to a full RV unit, up a ladder without any difficulty. He has no difficulty carrying items. He denies any lower extremity edema, symptoms of claudication. Denies any increased abdominal distention. He denies any PND or orthopnea. As noted, he denies any palpitations. He denies any previous syncopal episodes. Denies any cough, fevers, chills, or sweats. Denies any bleeding, bruising, dark stools or black stools. His CAT scan is consistent with an old lacunar infarct in the cerebellar region. He is unaware of having had a stroke. There is no history of atrial fibrillation. The rest of review of systems is otherwise negative. PAST MEDICAL HISTORY: 1. Cholecystitis. 2. Significant alcohol abuse leading to low platelets, anemia, elevated PT/INR. 3. Previous lacunar infarct in the cerebellar region by CAT scan. 4. Hypertension. 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 He is . He denies any tobacco. He does drink heavily at least 4 days a week. FAMILY HISTORY: Mom had bypass surgery and ultimately in her early 80s. MEDICATIONS: None. ALLERGIES: No known drug allergies. PHYSICAL EXAMINATION: GENERAL: He is awake, alert, oriented x3. He is in no acute distress. He looks his stated age. VITAL SIGNS: His heart rate is 54, blood pressure 197/97. He has been hypertensive in the hospital with blood pressures between 160 and 250 mmHg. HEENT: 2+ carotid upstrokes, no evidence of carotid bruits. Jugular venous pressure appeared normal. Sclerae is anicteric. His hearing is normal. LUNGS: Clear to auscultation bilaterally. No rales, rhonchi or wheezing. HEART: Regular rate and rhythm. No appreciable murmurs, rubs or gallops. ABDOMEN: Soft, nontender, nondistended. Positive bowel sounds. EXTREMITIES: No clubbing, cyanosis or edema. PSYCHIATRIC: His affect appeared appropriate. NEUROLOGIC: He is awake, alert and oriented x3. IMAGING: Carotid ultrasound, minimal atherosclerotic disease. Ultrasound of his gallbladder, cholelithiasis, but no evidence of acute cholecystitis. Chest x-ray, no active disease. LABORATORY STUDIES: Hemoglobin of 13.5, his platelet count is 77,000. PT is 12.3 with an INR of 1.2. Sodium 141, potassium 3.8, BUN 14, creatinine 0.82. AST 119, ALT 166, albumin is 2.7. EKG, sinus bradycardia at 49 beats per minute, possible septal MA, age indeterminate. IMPRESSION: 1. Syncopal episode likely on the basis of dehydration and excessive alcohol consumption and lack of food. 2. No evidence of arrhythmias noted on the monitor and no signs or symptoms to suggest atrial fibrillation as an outpatient as a possible cause for his lacunar infarct. 3. Septal infarct on his EKG. Likely, this is lead placement, but he will have an echocardiogram just to make sure that his LV function is normal. 4. Significant alcohol abuse with laboratory studies concerning for possible cirrhosis with low platelets, anemia, low albumin and an elevated INR. As it was discussed with the primary service, we will obtain an echocardiogram just to make sure that his LV function is normal, his carotid upstrokes feel brisk. There is nothing in his history to suggest a prior heart attack. Given his low platelet count even if he were to have coronary artery disease, I would treat him medically at this point given the risk of antiplatelet therapy with his thrombocytopenia. In addition, given his significant alcohol consumption with antiplatelet therapy, he would be at high risk for having a GI bleed. I would initiate antihypertensive therapy, given his bradycardia, there is no room to give him beta blockers with his presumed liver disease. I would avoid amlodipine as it likely will lead to lower extremity edema for him. Therefore, an HERON or an ARB is probably the best option and he will need outpatient followup. Assuming his echocardiogram is normal, from my standpoint, he could be discharged home. Thank you for allowing us to participate in his care. NEYDA
--- NOTE | 2019-05-30 15:21 | Discharge Summary ---
Date of Service May 30, 2019 Admission HPI Per Admitting Provider Patient is a 63-year-old male with a past medical history of jaundice, cholelithiasis, and intermittent gallbladder related abdominal pain. Patient is presenting for evaluation of syncopal episode with questionable seizure. Patient was in his normal state of health this morning prior to the syncopal episode. Patient reports of the last time he ate a meal was yesterday during lunch. He is but drove up to [place]terday evening, on the way up to camp he stopped for a Coca-Cola. Upon arrival to The patient decided he wanted a night and made for "strong" rum and Cokes and went to sleep. He woke up this morning feeling slightly hung over but otherwise had no symptoms or complaints. He reports that he did not drink any significant water yesterday evening or this morning. Today they were walking around the 100 mile yard sale near [facility] when the patient began feeling dizzy and like he was going to pass out. Subsequently the patient had a syncopal episode, with associated full body tremors, tongue biting, he turned slightly blue, this lasted for approximately 2 minutes. Fortunately for the patient at this time there was a hospice nurse in a couple of cycle liaison present. They took charge of the situation provided the patient with cool water, and ice packs. The patient recovered from a couple episode and was postictal, confused, unable to answer questions. He did have another questionable syncopal episode subsequently, this 1 was much shorter, and did not have significant shaking associated with it. EMS was called, per the patient's views for approximately 30 minutes until EMS arrived. The patient states he does not remember anything from the time of the fall until waking up in the ambulance. Upon waking up in the ambulance he reports being able to respond to questions and feeling significantly better. The patient was transferred to [facility] and evaluated department. The patient's lab findings were largely unremarkable with the exception of elevated liver function tests which per the patient was secondary to a history of cholelithiasis and need for elective cholecystectomy. Patient had a CT demonstrating an old cerebellar infarct. Patient is also slightly abnormal and concerning for possible previous infarct. Patient had a gallbladder ultrasound cholelithiasis without acute cholecystitis no current need for surgical intervention, chest x-ray was negative for any significant pathology. In the emergency department the patient was given 1 multivitamin, 1 folic, 1 dose of Keppra, a liter of saline, and thiamine. Patient denies any family history of seizures, history of cardiac disease. patient denies chest pain, chest pressure, shortness of breath, or other signs concerning for acute coronary, abdominal pain, change in vision, change in hearing, motor function, other concerning neurological signs or symptoms. Patient does drink heavily approximately 4 days/week, denies any recent changes in his alcohol consumption, this is most likely not related to alcohol withdrawal. Patient does not follow with her primary care provider regularly, approximately 1 & 1/2 years ago he saw Carmen Martin in [facility] for evaluation of jaundice, abdominal pain, he received ultrasound and was subsequently diagnosed with cholelithiasis and referred to gastroenterology for further evaluation. Patient is being admitted for [facility] to [facility] out of concern that this patient syncope was related to a cardiac event such as an arrhythmia. Admission Exam Per Admitting Provider General: Middle-aged male in no acute distress HEENT: Normocephalic atraumatic, tongue has a laceration and bruised secondary to biting Neck: Normal to visual inspection, negative JVD Cardiac: Regular rate and rhythm, I did not appreciate any murmurs rubs or gallops, normal S1 normal S2, negative pedal edema, negative calf tenderness Respiratory: Clear to auscultation bilaterally GI: Soft nontender nondistended normal bowel sounds MSK: Moves all extremities Skin: No new rashes Neuro: CN II through XII intact, no focal findings, sensory intact, motor intact, PERRLA, EOMI Psych: Calm, cooperative, not particularly interested in his health status, Principal Diagnosis Syncope Discharge Exam General: In NAD Neuro: A&O x 4 Pulm: CTAB equal breath sounds bilaterally CV: RRR, no m/r/g Abdomen:+BS, no TTP in all quadrants, non-distended LE: no LE edema, no calf TTP Discharge Data Allergies Allergy/AdvReac Type Severity Reaction Status Date / Time No Known Allergies Allergy Unverified 05/29/19 11:20 Consultations 05/29/19 14:08 ED Decision to Admit Stat 05/29/19 19:56 Consult Cardiology Routine Ordered Studies 05/29/19 11:21 CT head/brain wo con Stat 05/29/19 11:48 US gallbladder Stat 05/29/19 19:56 US carotid doppler Urgent Hospital Course (1) Syncopal seizure: Patient is a 63-year-old male with a past medical history of jaundice, cholelithiasis, and intermittent gallbladder related abdominal pain. Patient is presented for evaluation of syncopal episode with questionable seizure. #Syncopal episode No personal family history of seizure. Likely secondary to dehydration (patient was outside visiting multiple yard sales, reports having some coffee that morning and alcohol the night before only). Had lightheadedness and vision changes prior to syncopal episode. Seizure threshold likely also lowered by recent alcohol use (patient had 4 shots of vodka the night before). Patient CT scan did show a prior small lacunar cerebellar infarct, the patient was not previously aware of this, and has no residual symptoms. Patient does not follow regularly with PCP, and his medical history is largely unknown. -Lactate and CK were normal -Remains sinus rhythm on telemetry heart rate 50s to 70s -Serial troponins only as high as 0.04 and down trended to 0.02 without any significant EKG changes -Echo EF 55 to 60% no wall motion abnormalities -eeg unable to be completed over the weekend as nonurgent -recommend outpatient EEG -Lipid profile: Total cholesterol 242, LDL 161, triglycerides 212, HDL 39 -Found to be hypertensive as high as 190s over 110s -hba1c -4.9 -10-year ASCVD risk calculated to be 25%: Patient started on aspirin 81 mg daily, Lipitor 80 mg daily, lisinopril 10 mg daily -Patient needs outpatient EEG #Hx stroke -CT old lacunar infarct left cerebellar hemisphere. patient has no symptoms of this, was not aware that he previously had a stroke. -Carotid Dopplers: No dynamically significant stenosis #Transaminitis: Concern for alcoholic steatosis Per the patient this is chronic in nature. He was evaluated approximately 1.5 years ago by Melanie in [facility]. Admitting resident reports speaking with her office on the phone, confirming these findings. Patient presented to them with jaundice, CMP demonstrated elevated LFTs, and she referred him to GI. Admission gallbladder ultrasound demonstrated cholelithiasis without acute cholecystitis and liver appeared normal. Likely secondary to recent alcohol use versus baseline alcoholic steatosis. -LFTs improved to 0.9 total bili, AST 119, ALT 166 -Albumin was 2.7; INR 1.2, PT 12.3 -Platelets also low at 77 Outpatient follow-up with repeat CBC, CMP and coags recommended #Chronic alcohol use -Did not receive acute treatment alcohol withdrawal -Recommend abstaining given LFT abnormalities and concern for alcoholic steatosis -Started on folic acid and thiamine supplements -Outpatient follow-up #Hypertension -Work-up as above -Started on lisinopril 10 mg daily -Recommend outpatient follow-up Full code Total Time Total Time Spent Total Time Spent (In Minutes): > 30 min Discharge Plan Discharge Items Patient Disposition: Home - Self-Care Reason For Visit: SYNCOPAL SEIZURE Discharge Diagnosis: Syncope Discharge Goals: Decrease discomfort, Diagnostic testing and Therapeutic intervention Activity: Resume your previous activity Non-emergency contact: Primary Care Provider Call non-emergency contact if: you have any medication questions, your symptoms worsen and your temperature is above 101.5 Follow-up/Referrals: PCP,NO [Primary Care Provider] - Diet: Heart Healthy Addtl Provider Instructions: Mr. Keller you were admitted after you passed out. Your cardiac (heart) work up was reassuring however your cholesterol is high and your blood pressure was also noted to be high which need to be treated to prevent future heart attacks and strokes. There was concern for possible seizure like activity when you passed out which we cannot confirm at this time as you wished to go home and our hospital cannot perform the seizure study (EEG) on the weekends unless urgent. You were stable and doing well after the episode and can get the study done outpatient (outside the hospital). Please follow up with your primary care doctor on 06/01/19 who can help you arrange for that study. Please follow the instructions below: -Take Lisinopril 10mg once daily (blood pressure medication) -Take Lipitor (atorvastatin) 80mg once daily (cholesterol lowering medication) -Take aspirin 81mg once daily (you were at 25% risk in the next 10 years to have a heart attack or stroke based on your risk factors high blood pressure and high cholesterol and aspirin is recommended to protect you) -Take supplements folic acid 1mg daily and thiamine 100mg daily (these vitamins tend to be low in individuals who drink alcohol) -Your prescriptions for the medications listed above were electronically sent to [facility] in [place], [place] and should be ready for grain picker after discharge -Please abstain from drinking alcohol to protect your liver from further damage -Follow up with your primary care doctor on 06/01/19 and arrange for outpatient EEG (seizure study) Prescriptions: New thiamine HCl (vitamin B1) [Vitamin B-1] 100 mg Tablet 100 mg PO QAM Qty: 30 RF: 0 aspirin [Ecotrin Low Strength] 81 mg Tablet,Delayed Release (Dr/Ec) 81 mg PO QAM Qty: 30 RF: 0 lisinopril 10 mg Tablet 10 mg PO QAM Qty: 30 RF: 0 folic acid 1 mg Tablet 1 mg PO QAM Qty: 30 RF: 0 atorvastatin 80 mg tablet 80 mg PO DAILY Qty: 30 RF: 0 Stand-Alone Forms: [employer]/Other Patient Handouts: Atorvastatin Calcium Oral tablet, Lisinopril Oral tablet, Electroencephalography Having Discharge Orders: Discharge Order (Routine); Ordered 05/30/19 Ordered By: Tejal Dawson Admission Data Admit Date/Time: 05/29/19 18:19 Attending Provider: Yong Hebert Admit Provider: Tyrone Nguyen I. Primary Care Provider: PCP,NO Other Providers: Radha Pedraza Jason D Service: Telemetry Other Interventions: Discharge Summary Assessment (RN) Last Done: 05/30/19 15:07 DC Date/Time DO NOT enter until pt leaves facility: 05/30/19 15:35 Supervising Physician Co-Signing Physician Notes Attending attestation Pt seen and examined in concert with Dr. Dawson. In agreement with the documented findings as noted in the resident documentation with any exceptions or additions as noted here. Asymptomatic in bed on evaluation. On examination, S1/S2 nl RRR no MCG. CTAB. Abd NT/ND BS+ve Syncopal episode - likely 2/2 dehydration and heat injury - mild troponin elevation with nl echocardiogram s/p CV evaluation Hyperlipidemia - after discussion, would strongly recommend high dose statin therapy. Started atorvastatin 80mg Hypertension - likely longstanding - initiate lisinopril therapy and use spouse's home cuff to measure BP Alcohol use with transaminitis - 4 - 6 drinks 4 days per week - educated on cessation and recommended to avoid to prevent liver disease Else see resident documentation as noted. Resident Activity Tracking Resident Involvement: Resident Care Provided Care Provided: Adult Hospital Medicine
[2019-05-31] MEDS ORDERED: LISINOPRIL 10 MG TAB PO SCH (09:00)
== END 2019-05-30 15:35 | disposition home or self-care (01) ==
LOC: ED 10:51 → 2S 10:51